=== PATIENT | male | born 1955 | race Caucasian/White ===

== ENCOUNTER → 2017-03-26 | Outpatient (CLI) | payer MEDICARE, OTHER ==
[~2017-03-26] MED LIST: Bactrim Ds Tab1 EACH PO; CEPH500 PO; FURO20 PO; LEVSOD50 PO; LISI20 PO; MONT10T PO; Monodox100 MG PO; NEOPOLHCSU LEFTEAR; Prozac20 MG PO
== END | disposition home or self-care (01) ==
LOC: LAB 16:00
DX: L03.90 Cellulitis, unspecified (principal)
CPT/HCPCS: 87070; 87077; 87147; 87186; 87205

== ENCOUNTER 2017-11-10 10:14 | Emergency (ER) | payer MEDICARE, OTHER ==
[~2017-11-10] VITALS: Ht 172.7 cm; Wt 89.4 kg
[~2017-11-10 10:14] MED LIST changes: -Bactrim Ds Tab1 EACH PO; -CEPH500 PO; -FURO20 PO; -LEVSOD50 PO; -LISI20 PO; -MONT10T PO; -NEOPOLHCSU LEFTEAR; -Prozac20 MG PO
[2017-11-10] MEDS ORDERED: FURO20 PO (10:36)
[2017-11-10] MEDS ORDERED: LEVSOD50 PO (10:36)
[2017-11-10] MEDS ORDERED: LISI20 PO (10:36)
[2017-11-10] MEDS ORDERED: MONT10T PO (10:36)
[2017-11-10] MEDS ORDERED: Prozac20 MG PO (10:36)
[2017-11-10] MEDS ORDERED: CEPH500 PO (11:09)
[2017-11-10] MEDS ORDERED: Bactrim Ds Tab1 EACH PO (11:09)
[2017-11-10] MEDS ORDERED: NEOPOLHCSU LEFTEAR (11:09)
== END 2017-11-10 11:17 | disposition home or self-care (01) ==
LOC: ER 10:14
DX: L03.113 Cellulitis of right upper limb (principal); L02.511 Cutaneous abscess of right hand; H60.90 Unspecified otitis externa, unspecified ear
CPT/HCPCS: 99282